=== PATIENT | male | born 1970 | race African-American/Black ===

== ENCOUNTER 2024-06-08 11:12 | Emergency (ER) | payer MEDICAID ==
[~2024-06-08] VITALS: Ht 170.2 cm; Wt 70.0 kg
[2024-06-08 11:14] VITALS: O2SAT 97
[2024-06-08] MEDS: LEVETIRACETAM 1000MG PREMIX 100 ML IV ONE (11:44)
[2024-06-08 12:02] LABS: BASOPHILS % 0.9 % (0.0-2.0); HEMATOCRIT. 39.1 % (42.0-52.0); HEMOGLOBIN. 13.2 g/dL (14.0-18.0); LYMPHOCYTES % 23.3 % (20.0-50.0); MEAN CORPUSCULAR HGB CONC 33.9 g/dL (31.0-37.0); MEAN CORPUSCULAR VOLUME 97.3 fL (80.0-94.0); MEAN PLATELET VOLUME 8.3 fl (7.4-10.4); MONOCYTES % 7.5 % (2.0-8.0); NEUTROPHILS % 63.3 % (40.0-76.0); PLATELET 236 x1000/uL (130-400); RED BLOOD CELL COUNT 4.01 mill/uL (4.7-6.1); RED CELL DISTRIBUTION WIDTH 13.8 % (11.6-14.6); WHITE BLOOD COUNT 8.7 x1000/uL (4.5-11.0)
[2024-06-08 12:09] LABS: CHLORIDE 109 mEq/L (98-107); POTASSIUM 3.9 mEq/L (3.5-5.1); SODIUM 141 mEq/L (136-145)
[2024-06-08 12:10] LABS: CARBON DIOXIDE 29 mEq/L (21-32)
[2024-06-08 12:15] LABS: CREATININE 0.9 mg/dL (0.6-1.3); GLUCOSE 85 mg/dL (70-105); UREA NITROGEN BLOOD 9 mg/dL (9-23)
[2024-06-08 12:17] LABS: ETHANOL BLOOD < 10 mg/dL (<10)
[2024-06-08] MEDS: ACETAMINOPHEN 325MG TABLET PO ONE (14:06)
[2024-06-08 15:01] VITALS: BP 137/82; PULSE 70; RESP 20; TEMP 36.61404; O2SAT 97
== END 2024-06-08 15:02 | disposition home or self-care (01) ==
LOC: ER 11:12
DX: R56.9 Unspecified convulsions (principal)
CPT/HCPCS: 80048; 80320; 85025; 36415; 96365; 99284; J1953; Z7610; G0480

== ENCOUNTER 2024-10-12 07:16 | Emergency (ER) | payer MEDICAID ==
[~2024-10-12] VITALS: Ht 175.3 cm; Wt 81.0 kg
[2024-10-12 07:18] VITALS: O2SAT 99
[2024-10-12] MEDS: LEVETIRACETAM 1000MG PREMIX 100 ML IV ONE (08:02)
[2024-10-12 08:12] LABS: BASOPHILS % 0.7 % (0.0-2.0); EOSINOPHILS % 1.1 % (0.0-5.0); HEMATOCRIT. 40.6 % (42.0-52.0); HEMOGLOBIN. 13.4 g/dL (14.0-18.0); LYMPHOCYTES % 11.5 % (20.0-50.0); MEAN CORPUSCULAR HEMOGLOBIN 32.9 pg (28.0-32.0); MEAN CORPUSCULAR HGB CONC 33.1 g/dL (31.0-37.0); MEAN CORPUSCULAR VOLUME 99.3 fL (80.0-94.0); MEAN PLATELET VOLUME 8.8 fl (7.4-10.4); MONOCYTES % 5.5 % (2.0-8.0); NEUTROPHILS % 81.2 % (40.0-76.0); PLATELET 162 x1000/uL (130-400); RED BLOOD CELL COUNT 4.09 mill/uL (4.7-6.1); WHITE BLOOD COUNT 9.3 x1000/uL (4.5-11.0)
[2024-10-12 08:22] LABS: CHLORIDE 104 mEq/L (98-107); POTASSIUM 3.7 mEq/L (3.5-5.1); SODIUM 141 mEq/L (136-145)
[2024-10-12 08:23] LABS: CALCIUM 9.7 mg/dL (8.7-10.4); CARBON DIOXIDE 27 mEq/L (21-32)
[2024-10-12 08:28] LABS: CREATININE 1.1 mg/dL (0.6-1.3); GLUCOSE 94 mg/dL (70-105); UREA NITROGEN BLOOD 9 mg/dL (9-23)
[2024-10-12 08:54] LABS: ETHANOL BLOOD < 10 mg/dL (<10)
[2024-10-12 09:52] VITALS: BP 134/84; PULSE 85; RESP 15; TEMP 37; O2SAT 100
== END 2024-10-12 09:54 | disposition home or self-care (01) ==
LOC: ER 07:16
DX: G40.909 Epilepsy, unspecified, not intractable, without status epilepticus (principal); Z79.899 Other long term (current) drug therapy
CPT/HCPCS: 80048; 80320; 85025; 36415; 96374; 99283; J1953; G0480